=== PATIENT | female | born 1930 | race African-American/Black ===

== ENCOUNTER 2017-01-20 23:40 | Emergency (ER) | payer MEDICARE ==
[~2017-01-20 23:40] MED LIST: ACCUNE1 INH; ACCUNEB INH; ACET500CAP PO; ALAWAY0.025 % OPH; ALBUTEROL INH; ALBUTEROL5 INH; ALIGN4 MG PO; ALLEGRA180 PO; ALTOREX150 MG PO; AMOXIL500 MG PO; ANUSOL PR; ANUSOL TOP; ANUSOL-HC2.5 % PR; ANUSOL-HC2.5 % TOP; ATRONASAL3 NAS; ATROVENTUD INH; BIOTENE MOUTH SPRAY MT; BROVANA15 MCG INH; BUM1 PO; BUM2; BUM2 PO; BUM5 PO; C1 PO; C25 PO; C5 PO; CALCIUM PO; CALTRA600D PO; CENTRUM TAB1 TAB PO; CEPACOL ULTR1 LOZ MT; CLARIT10 PO; COMBIVENT RESPIM4 GM INH; COREG12 PO; COREG3 PO; COREG6 PO; COUMADIN4 MG PO; COUMADIN6 MG PO; CYANO1000T PO; DIABETA5 PO; DIOV80 PO; DRISDOL50000 UNT PO; DSS PO; DUONEB INH; ENDOCET1 TAB PO; EYE DROPS OP; FERROUS SULF325 M1 PO; FLECTOR1.3 % TOP; FLONASE NAS; FLORASTOR250 MG PO; FOLBEE PO; FOSAMAX PO; FOSAMAX35 MG PO; FOSAMAX40 MG PO; FRESHKOTE OP; FRESHKOTE OPH; GENTEA2 OPH; GENTEAL OPH; GGDM5ML PO; GGEXPUD PO; GLUCAGON IM; GLUCAGON IV; GLUCOSE; GLUCOSE PO; GLUCOSE TABLET PO; GLUCOSE TABS PO; GLUCOTROL5 PO; GLUCXL2.5 PO; GLUTOSE GEL PO; GLYSET25 MG OR; HUMI PO; HYDROCORT12 EX; HYDROCORT12 TOP; INH300 PO; INSULIN SC; KDUR20 PO; KLOR-CON 1010 MEQ PO; KLOR-CON M2020 MEQ PO; KLOR-CON20 MEQ PO; L40 PO; LANTUS SC; LANTUSCART SC; LEVAQUIN5T PO; LEVAQUIN750 MG PO; LEVEMIR SC; LIQUID TEARS OP; LIQUID TEARS OPH; MCZ125 PO; MIRALAXPKT PO; MUCINEX D1 TA1 OR; MUCINEX600 MG PO; MUCO20%4ML INH; MULTIVIT/MIN PO; MULTIVITAMI1 PO; MVIUDL PO; MYLANTA GAS125 M1 PO; MYTAB GAS125 MG PO; NEPHRO PO; NEPHRO-VITE PO; NEPHROCAPS PO; NEUR100 PO; NEUR300 PO; NORCO1 TA1 PO; NOVOLOG SC; NUIRONCAP PO; P10; P10 PO; P20 PO; P5 PO; PAIN RELIEF TOP; PCET PO; PERFOROM INH; PLAVIX PO; POLY IRON150 MG PO; PRILO PO; PROTONIX PO; PROTONIX20 MG PO; PROVENTSOL INH; PULMICORT INH; PULRESP.5 INH; PULRESP1 INH; QC HYDROCORT1 % TOP; REFRESH OP; REG5 PO; ROBITUSS11 PO; ROBITUSS23 PO; ROBITUSSIN CF PO; ROBITUSSIN DM PO; SANTYL250 MG/GM TOP; SENTAB PO; SINGULAIR1 PO; SUDAFED PO; SYSTANE OP; T PO; TAMIFLU PO; TEARS PLUS OPH; TESS PO; ULTRAM50 PO; VANCO1P IV; VIACTIV PO; VIBRATAB100 MG PO; VIT B-SIX 50 MG50 MG PO; VIT D PO; VITAMIN B-121000 MC1 SL; VITAMIN B-625 MG PO; VITC500 PO; VOLTAREN1 % TOP; ZADITOR OPTH OPH; ZADITOR0.025 % OPH; ZINC PO; ZINC220C PO; ZOCOR40 PO; ZOSYN375 IV; ZYRTEC ALLGY10 MG PO; [UNRECOGNIZED DRUG - OTHER] INH; [UNRECOGNIZED DRUG - OTHER] INH; [UNRECOGNIZED DRUG - OTHER] T; [UNRECOGNIZED DRUG - OTHER] TOP; [UNRECOGNIZED DRUG - REMARK] OP
[2017-01-21 00:59] LABS: LACTATE 1.5 MMOL/L (0.3-2.4)
[2017-01-21 01:28] LABS: BASOPHILS 0.3 %; BASOPHILS ABSOLUTE 0.03 10/3/uL (0.0-0.16); EOSINOPHILS 1.7 %; EOSINOPHILS ABSOLUTE 0.18 10/3/uL (0.0-0.53); HEMATOCRIT 27.6 % (36.0-48.0); HEMOGLOBIN 9.4 g/dL (12.0-16.0); IMMATURE GRANULOCYTES 0.3 %; IMMATURE GRANULOCYTES ABSOLUTE 0.03 10/3/uL (0.0-0.11); LYMPHOCYTES 21.9 %; LYMPHOCYTES ABSOLUTE 2.27 10/3/uL (0.67-4.30); MEAN CORPUS HGB CONC 34.1 g/dL (32.0-36.0); MEAN CORPUSCULAR HEMOGLOB 29.6 pg (26.0-34.0); MEAN CORPUSCULAR VOLUME 86.8 fL (80-100); MEAN PLATELET VOLUME 9.3 fL (9.2-13.0); MONOCYTES 7.8 %; MONOCYTES ABSOLUTE 0.81 10/3/uL (0.21-1.20); NEUTROPHILS ABSOLUTE 7.03 10/3/uL (2.02-8.40); PLATELET COUNT 250 10/3/uL (150-400); RBC DISTRIBUTION WIDTH 14.3 % (12.0-16.0); RED CELL COUNT 3.18 10/6/uL (4.0-5.6); WHITE BLOOD CELLS 10.4 10/3/uL (4.5-10.5)
[2017-01-21 01:29] LABS: ER CBC TAT 0 Hrs 07 MinsNP; MANUAL DIFF NO %
[2017-01-21 01:40] LABS: CALCIUM, SERUM 8.4 MG/DL (8.5-10.4); CHLORIDE, SERUM 101 MMOL/L (96-112); CO2 (CARBON DIOXIDE) 28 MMOL/L (24-34); CREATININE 1.45 MG/DL (0.55-1.02); GFR AFRICAN AMERICAN 37 ML/MIN (>=60); GFR NON AFRICAN AMERICAN 32 ML/MIN (>=60); GLUCOSE, SERUM 195 MG/DL (60-99); POTASSIUM, SERUM 3.5 MMOL/L (3.5-5.3); SODIUM, SERUM 139 MMOL/L (135-148)
[2017-01-21 01:41] LABS: BUN (BLOOD UREA NITROGEN) 25 MG/DL (6-23)
[2017-01-21 02:06] LABS: PROCALCITONIN 0.05 ng/mL (<0.5)
[2017-01-21 04:40] LABS: ASCORBIC ACID (UR NOT ORDER) NEG (NEG); BILIRUBIN, URINE NEGATIVE (NEG); ER URINALYSIS TAT 0 Hrs 00 Mins; KETONE, URINE NEGATIVE (NEG); LEUKOCYTE ESTERASE(NOT OR MOD (NEG); NITRITE (URINE) NEG (NEG); WBC (NOT ORDERED) (RFLEX) 10 (0-5)
== END 2017-01-21 05:50 | disposition home or self-care (01) ==
LOC: ER 23:40
PROVIDERS: Emergency Medicine
DX: J11.1 Influenza due to unidentified influenza virus with other respiratory manifestations (principal); I12.9 Hypertensive chronic kidney disease with stage 1 through stage 4 chronic kidney disease, or unspecified chronic kidney disease; K21.9 Gastro-esophageal reflux disease without esophagitis; E11.9 Type 2 diabetes mellitus without complications; Z95.0 Presence of cardiac pacemaker; Z91.011 Allergy to milk products; Z88.8 Allergy status to other drugs, medicaments and biological substances; Z79.01 Long term (current) use of anticoagulants; Z79.899 Other long term (current) drug therapy; Z79.4 Long term (current) use of insulin
CPT/HCPCS: 71010; 80048; 81001; 83605; 84145; 85025; 87040; 87077; 87086; 87186; 99284